=== PATIENT | female | born 1935 | race Caucasian/White ===

== ENCOUNTER 2016-11-27 11:25 | Emergency (ER) | payer OTHER ==
[2016-11-27 11:29] VITALS: BP 127/81; BMI 26.2
--- NOTE | 2016-11-27 12:06 | DR.EXTPAIN ---
HPI - Time seen Time seen: 11:50 - PCP Primary Care Physician: EDER - Complaint/Symptoms Chief Complaint Doctor Comments: Patient with frequent falls, had large hematoms of the head few weeks ago, last week fell injured left shoulder. Family member reports that patient is having increasing altered mental status. Chief Complaint:: PT. C/O LEFT SHOULDER PAIN S/P FALL. FAMILY MEMBER STATES PT. HAS BEEN FALLING MORE FREQUENTLY LATELY. PT. HAS AN OLD BRUISE TO LEFT FOREARM AND LEFT OUTER UPPER ARM. - Source History Provided: Patient, Family Member - Mode of arrival Mode of Arrival: Wheelchair - Timing Onset of Chief Complaint: 11/26/16 PMH - PMH Past Medical History: Yes Past Medical History: Alzheimers, CVA, Hypertension, [place] Past Surgical History: Yes Surgical History: CABG/Valve Surgery Past Surgical History Comment: BILATERAL CAROTID ENDARECTOMY - Family History History of Family Medical Conditions: Yes Family Medical History: [place], Coronary Artery Disease, Hypertension Family Medical History Comment: CVA - Social History Does patient currently use any type of tobacco product: No Have you used tobacco products in the last 12 months: No Type of Tobacco Use: None Does any household member use tobacco: No Alcohol Use: None Do you use any recreational Drugs:: No Lives With: Family Lives Where: Home - infectious screening In the last 2 months have you had wt loss of >10#?: NO Have you had fever, night sweats or hemotysis?: No Have you traveled outside the country in the last 6 months?: No Isolation: Standard ROS - Review of Systems Constitutional: No Symptoms Reported Eyes: No Symptoms Reported ENTM: No Symptoms Reported Respiratoy: No Symptoms Reported Gastrointestinal/Abdominal: No Symptoms Reported Genitourinary: No Symptoms Reported Neurological: No Symptoms Reported Musculoskeletal: Joint Pain (left) Integumentary: Change in Color (ecchymosis left shoulder) Hematologic/Lymphatic: No Symptoms Reported Endocrine: No Symptoms Reported Psychiatric: No Symptoms Reported All Other Systems: Reviewed and Negative PE - Vital Signs Vitals: Temperature 98.4 F Pulse Rate 76 Respiratory Rate 16 Blood Pressure 127/81 O2 Sat by Pulse Oximetry 96 - General General Appearance: Alert, In No Apparent Distress - Head Head Exam: Normal Inspection, Atraumatic - Eyes Eye exam: Normal Appearance, PERRL, EOMI - ENT ENT Exam: Normal Exam - Neck Neck Exam: Normal Inspection, Full ROM - Chest Chest Inspection: Normal Inspection - Respiratory Respiratory Exam: Normal Lung Sounds Bilat Respiratory Exam: Bilateral Clear to Auscultation - Cardiovascular Cardiovascular Exam: Regular Rate, Normal Rhythm - Abdominal Exam Abdominal Exam: Normal Inspection Abdominal Tenderness: negative: RUQ, RLQ, LUQ, LLQ, Epigastrium, Suprapubic, Diffuse, Mild, Moderate, Severe, Other - Extremities Extremities Exam: Tenderness (left shoulder) - Upper Extremities Shoulder Exam: Tenderness over AC Joint Arm Exam: negative: Normal Inspection, Full ROM, Tenderness, Swelling, Abrasion , Laceration, Ecchymosis, Deformity, Crepitus, Erythema, Other Elbow Exam: Normal Inspection Forearm Exam: Normal Inspection Hand Exam: Normal Inspection Neuromotor Exam: Normal Exam Neurosensory Exam: Normal Exam Hand Tendon Exam: Flexor Digitorium Profundus (Location) Upper Ext. Vascular Exam: Capillary Refill - Lower Extremities Hip/Pelvis Exam: Normal Inspection Upper Leg Exam: Normal Inspection Knee Exam: Normal Inspection Lower Leg Exam: Normal Inspection Ankle Exam: Normal Inspection Foot/Toe Exam: Normal Inspection Neurovascular/Tendon Exam: Normal Capillary Refill Gait Exam: Observed and Normal - Back Back Exam: Normal Inspection - Neurological Neurological Exam: Alert, Oriented X3, CN II-XII Intact - Psychiatric Psychiatric Exam: Normal Affect, Normal Mood - Skin Skin Exam: Warm, Dry, Intact Type of Lesion: Rash Distribution: Generalized, Involves Palms/Soles, Neck ROR - Labs Reviewed Laboratory: Specimen Type Catherized urine 11/27/16 13:35 Urine Color Yellow (YELLOW) 11/27/16 13:35 Urine Appearance Slightly hazy (CLEAR) 11/27/16 13:35 Urine pH 6.0 (5.0 - 8.0) 11/27/16 13:35 Ur Specific [place] 1.020 (1.000-1.030) 11/27/16 13:35 Urine Protein Negative (NEGATIVE) 11/27/16 13:35 Urine Glucose (UA) Negative (NEGATIVE) 11/27/16 13:35 Urine Ketones Negative (NEGATIVE) 11/27/16 13:35 Urine Occult Blood Negative (NEGATIVE) 11/27/16 13:35 Urine Nitrite Positive (NEGATIVE) 11/27/16 13:35 Urine Bilirubin Negative (NEGATIVE) 11/27/16 13:35 Urine Urobilinogen Normal (NORMAL) 11/27/16 13:35 Ur Leukocyte Esterase Negative (NEGATIVE) 11/27/16 13:35 Urine RBC 2-5 /HPF (NEGATIVE) 11/27/16 13:35 Urine WBC 3-7 /HPF (NEGATIVE) 11/27/16 13:35 Ur Squamous Epith Cells Rare /HPF (NEGATIVE) 11/27/16 13:35 Amorphous Sediment Trace /HPF (NEGATIVE) 11/27/16 13:35 Urine Bacteria 2+ /HPF (NEGATIVE) 11/27/16 13:35 Hyaline Casts Rare /LPF (NEGATIVE) 11/27/16 13:35 Ur Culture Indicated? Yes/culture set up 11/27/16 13:35 - XRAY XRAY Interpreted by: Radiologist (No acute intracranial process can be identified, Small vessel disease, mild age related cortical atrophy, Shoulder negative for fracture) - Diagnosis Discharge Problem: Contusion of shoulder, left Qualifiers: Encounter type: initial encounter Qualified Code(s): S40.012A - Contusion of left shoulder, initial encounter - Discharge Plan Condition: Stable - Follow ups/Referrals Follow ups/Referrals: Trent GAINES [Primary Care Provider] - 3 days - Instructions
--- NOTE | 2016-11-27 12:41 | RAD ---
HISTORY: Injury, fall, left humeral pain Study: Left humerus two view Comparison: None Findings: No acute cortical disruption or dislocation can be identified. The humeral head appears unremarkabl e. No significant soft tissue swelling or injury can be seen. IMPRESSION: 1. Negative exam. Reported By:
--- NOTE | 2016-11-27 12:47 | CT ---
HISTORY: Head injury, fall Study: CT brain without contrast Comparison: None Technique: Multiple axial images of the brain were obtained from the skull base to the vertex without administr ation of IV contrast. Coronal and sagittal reformats were performed. Dose reduction procedures were used with MA/kv adjusted for body size. Findings: No acute intraparenchymal hemorrhage or mass can be identified. No extra-axial fluid collections ar e seen. No alteration in the attenuation of the brain parenchyma can be identified to suggest acute or subacute ischemic change. The ventricular system is symmetric and nondilated. there is decrease d attenuation in the periventricular white matter suggestive of small vessel vascular disease. Mild age-related cortical atrophy is present. The extracranial structures are grossly unremarkable. the c alvarium is intact. IMPRESSION: 1. No acute intracranial process can be identified. 2. Small-vessel disease 3. Mild age-related cortical atrophy Reported By:
[2016-11-27 13:43] LABS: BILIRUBIN,URINE NEGATIVE (NEGATIVE); BLOOD/HEMOGLOBIN,URINE NEGATIVE (NEGATIVE); GLUCOSE, URINE NEGATIVE (NEGATIVE); KETONES,URINE NEGATIVE (NEGATIVE); LEUKOCYTE ESTERASE ,URINE NEGATIVE (NEGATIVE); NITRITES,URINE POSITIVE (NEGATIVE); PROTEIN,URINE NEGATIVE (NEGATIVE); UROBILINOGEN,URINE NORMAL (NORMAL)
[2016-11-27 13:51] LABS: APPEARANCE,URINE SLIGHTLY HAZY (CLEAR); COLOR,URINE YELLOW (YELLOW)
[2016-11-27 13:52] LABS: SQUAMOUS EPITHELIAL CELL,UR RARE /HPF (NEGATIVE)
[2016-11-27 13:54] LABS: AMORPHOUS SEDIMENT,UR TRACE /HPF (NEGATIVE); BACTERIA,URINE 2+ /HPF (NEGATIVE); HYALINE CASTS, URINE RARE /LPF (NEGATIVE)
== END 2016-11-27 14:16 | disposition home or self-care (01) ==
LOC: ER 11:56
DX: S40.012A Contusion of left shoulder, initial encounter (principal); B96.29 Other Escherichia coli [E. coli] as the cause of diseases classified elsewhere; W19.XXXA Unspecified fall, initial encounter; Y92.9 Unspecified place or not applicable; R41.82 Altered mental status, unspecified
CPT/HCPCS: 51701; 70450; 73060; 81001; 87086; 87088; 87186; 99283

== ENCOUNTER → 2016-12-18 | Outpatient (CLI) | payer OTHER ==
[2016-11-27 11:29] VITALS: BP 127/81
--- NOTE | 2016-12-18 14:45 | RAD ---
HISTORY: Back pain Study: Lumbar spine AP, lateral, lateral flexion and extension Comparison: None Findings: The bones are osteopenic. There is slight retrolisthesis L3 on L4 and L4 on L5 which is stable in fl exion and extension with the exception of slight increase in retrolisthesis L3 on L4 in extension. T he lumbar vertebral bodies are of average height. There is a marked which compression of T12 age ind eterminate. Degenerative disc disease is present at all levels except L5-S1. The pedicles are intact . The SI joints are normal. There is facet degenerative joint disease at L5-S1 bilaterally. IMPRESSION: Multilevel degenerative disc disease as described above Slight retrolisthesis L3 on L4 and L4 on L5 stable in flexion extension with the exception of slight increase retrolisthesis L3 on L4 in extension Facet degenerative joint disease. Osteopenia Reported By:
== END ==
LOC: RAD 10:00
PROVIDERS: ATTEND Pain Medicine Interventional Pain Medicine
DX: M51.27 Other intervertebral disc displacement, lumbosacral region (principal)
CPT/HCPCS: 72120

== ENCOUNTER → 2017-06-14 | Outpatient (CLI) | payer OTHER ==
[2017-06-14 10:40] LABS: BLOOD UREA NITROGEN 22 mg/dL (7-18); CALCIUM 8.8 mg/dL (8.5-10.1); CARBON DIOXIDE 31.1 mmol/L (21-32); CHLORIDE 103 mmol/L (98-107); CREATININE 1.06 mg/dL (0.55-1.02); SODIUM 140 mmol/L (136-145); eGFR BLACK RACES > 60 (>60); eGFR NON BLACK RACES 53 (>60)
[2017-06-14 10:59] LABS: B-TYPE NATRIURETIC PEPTIDE 125 pg/mL (0-79)
--- NOTE | 2017-06-14 11:49 | RAD ---
HISTORY: Status post coronary artery stent placement Study: Two views of the chest Comparison: None Findings: The patient is rotated. The cardiac silhouette is enlarged. The lungs are well expanded without evide nce of focal consolidation. The aorta is partially calcified and tortuous. Postoperative changes of m idline sternotomy are noted. IMPRESSION: Cardiomegaly. Reported By:
== END ==
LOC: LAB 10:12
PROVIDERS: ATTEND Internal Medicine Cardiovascular Disease
DX: I35.0 Nonrheumatic aortic (valve) stenosis (principal); F02.80 Dementia in other diseases classified elsewhere, unspecified severity, without behavioral disturbance, psychotic disturbance, mood disturbance, and anxiety; I10 Essential (primary) hypertension; G30.8 Other Alzheimer's disease; Z95.5 Presence of coronary angioplasty implant and graft
CPT/HCPCS: 36415; 71020; 80048; 83880

== ENCOUNTER 2017-09-17 15:35 | Observation (INO) | payer OTHER ==
--- NOTE | 2017-09-17 16:11 | RAD ---
Examination: Portable AP chest History: Chills and fever Comparison reference 06/14/2017 Findings: Continued mild cardiomegaly with postsurgical findings. Grossly clear lungs and pleural spa emi. There may be an early infiltrate developing in the right lower lung. No pneumothorax or pleural fluid. Impression: Probably negative, see above. Follow-up suggested if symptoms persist to evaluate possibl e developing pneumonia in the right lower lobe. Reported By:
[2017-09-17 16:26] LABS: BASOPHILS % (AUTO) 0.3 % (0.2-1.0); HEMATOCRIT 36.1 % (36.0-47.0); HEMOGLOBIN 12.6 g/dL (12.0-16.0); LYMPHOCYTES # (AUTO) 0.6 X10^3/uL (1.3-2.9); LYMPHOCYTES % (AUTO) 9.6 % (21.0-51.0); MEAN CORPUSCULAR HEMOGLOBIN 32.1 pg (27.0-34.0); MEAN CORPUSCULAR HGB CONC 34.9 g/dL (33.0-35.0); MEAN PLATELET VOLUME 8.3 fL (7.4-11.0); MONOCYTES # (AUTO) 0.4 x10^3/uL (0.3-0.8); MONOCYTES % (AUTO) 5.5 % (0.0-13.0); NEUTROPHILS # (AUTO) 5.5 x10^3/uL (2.2-4.8); NEUTROPHILS % (AUTO) 84.6 % (42.0-75.0); PLATELET COUNT 178 X10^3/uL (150.0-450.0); RED BLOOD COUNT 3.92 X10^6/uL (3.5-5.4); RED CELL DISTRIBUTION WIDTH 13.2 % (11.6-16.5); WHITE BLOOD COUNT 6.5 X10^3/uL (3.6-10.0)
--- NOTE | 2017-09-17 16:33 | DR.GENAD ---
HPI - PCP Primary Care Physician: EDER - Complaint/Symptoms Chief Complaint Doctors Comments: pt with dementia, hx from family. Family notices diaphoresis as well Chief Complaint:: FAMILY STATES TODAY PT. HAD FEVER, CHILLS, AND WAS DIAPHORETIC. PT. ALSO HAD A NON-PRODUCTIVE COUGH. - Nurses notes reviewed Nurses Notes Review: Yes - Source History Provided: Family Member, EMS - Mode of Arrival Mode of Arrival: EMS - Timing Onset of Chief Complaint: 09/17/17 - Duration Duration: Since Onset - Severity Severity: Moderate PMH - PMH Past Medical History: Yes Past Medical History: Alzheimers, CVA, Hypertension, [place] Past Medical History Comment: CHRONIC UTI'S Past Surgical History: Yes Surgical History: CABG/Valve Surgery - Family History History of Family Medical Conditions: Yes Family Medical History: [place], Coronary Artery Disease, Hypertension - Social History Does patient currently use any type of tobacco product: No Have you used tobacco products in the last 12 months: No Type of Tobacco Use: None Does any household member use tobacco: No Alcohol Use: None Do you use any recreational Drugs:: No Lives With: Family Lives Where: Home - infectious screening In the last 2 months have you had wt loss of >10#?: NO Have you had fever, night sweats or hemotysis?: No Have you traveled outside the country in the last 6 months?: No Isolation: Standard ROS - Review of Systems Unable to Obtain Due To: Altered mental status (pt with dementia, cant give good hx but family members are good historians) PE - Vital Signs Vitals: Temperature 97.7 F Pulse Rate 57 Respiratory Rate 24 Blood Pressure 105/54 O2 Sat by Pulse Oximetry 94 - General Limitations: Altered Mental Status General Appearance: Alert, In No Apparent Distress - Head Head Exam: Normal Inspection, Atraumatic, Normocephalic - Eyes Eye exam: Normal Appearance - ENT ENT Exam: Normal Exam, Normal Oropharynx Throat Exam: Normal Inspection - Neck Neck Exam: Normal Inspection, Full ROM, Trachea Midline. negative: Tenderness, Lymphadenopathy - Chest Chest Inspection: Normal Inspection, Symmetric Chest Wall Rise - Respiratory Respiratory Exam: negative: Accessory Muscle Use, Chest Wall Tenderness, Respiratory Distress Respiratory Exam: Right Rhonchi (air exch good) - Extremities Extremities Exam: Normal Capillary Refill, Edema - Skin Skin Exam: Diaphoresis (mild diaphoresis) ROR - Labs Reviewed Result Diagrams: 09/17/17 16:00 09/17/17 16:00 Laboratory: WBC 6.5 X10^3/uL (3.6-10.0) 09/17/17 16:00 RBC 3.92 X10^6/uL (3.5-5.4) 09/17/17 16:00 Hgb 12.6 g/dL (12.0-16.0) 09/17/17 16:00 Hct 36.1 % (36.0-47.0) 09/17/17 16:00 MCV 92.0 fL (80.0-100.0) 09/17/17 16:00 MCH 32.1 pg (27.0-34.0) 09/17/17 16:00 MCHC 34.9 g/dL (33.0-35.0) 09/17/17 16:00 RDW 13.2 % (11.6-16.5) 09/17/17 16:00 Plt Count 178 X10^3/uL (150.0-450.0) 09/17/17 16:00 MPV 8.3 fL (7.4-11.0) 09/17/17 16:00 Neut % 84.6 % (42.0-75.0) H 09/17/17 16:00 Lymph % 9.6 % (21.0-51.0) L 09/17/17 16:00 [place] % 5.5 % (0.0-13.0) 09/17/17 16:00 Eos % 0.0 % (0.9-2.9) L 09/17/17 16:00 Baso % 0.3 % (0.2-1.0) 09/17/17 16:00 Neut # 5.5 x10^3/uL (2.2-4.8) H 09/17/17 16:00 Lymph # 0.6 X10^3/uL (1.3-2.9) L 09/17/17 16:00 [place] # 0.4 x10^3/uL (0.3-0.8) 09/17/17 16:00 Eos # 0.0 x10^3/uL (0.0-0.2) 09/17/17 16:00 Baso # 0.0 X10^3/uL (0.0-0.1) 09/17/17 16:00 Absolute Nucleated RBC 0.0 /100WBC 09/17/17 16:00 - XRAY XRAY Findings: concern for developing infiltrate RLL - Discharge Plan Condition: Stable - Follow ups/Referrals Follow ups/Referrals: Trent GAINES [Primary Care Provider] - 3 days - Instructions
[2017-09-17 16:36] LABS: BILIRUBIN,URINE NEGATIVE (NEGATIVE); BLOOD/HEMOGLOBIN,URINE 1+ (NEGATIVE); GLUCOSE, URINE NEGATIVE (NEGATIVE); KETONES,URINE NEGATIVE (NEGATIVE); LEUKOCYTE ESTERASE ,URINE 1+ (NEGATIVE); NITRITES,URINE POSITIVE (NEGATIVE); PROTEIN,URINE 1+ (NEGATIVE); UROBILINOGEN,URINE NORMAL (NORMAL)
[2017-09-17 16:45] LABS: BLOOD UREA NITROGEN 22 mg/dL (7-18); CARBON DIOXIDE 29.3 mmol/L (21-32); CHLORIDE 103 mmol/L (98-107); CREATININE 1.37 mg/dL (0.55-1.02); SODIUM 138 mmol/L (136-145); TROPONIN I < 0.02 ng/mL (0-1.5); eGFR BLACK RACES 48 (>60); eGFR NON BLACK RACES 39 (>60)
[2017-09-17 16:49] LABS: ALANINE AMINOTRANSFERASE 24 Units/L (12-78); ALBUMIN 2.8 g/dL (3.4-5.0); ALKALINE PHOSPHATASE 85 Units/L (46-116); ASPARTATE AMINO TRANSFERASE 22 Units/L (15-37); CKMB % 3.3 % (<4); CREATINE KINASE 30 Units/L (26-192); CREATINE KINASE MB < 1.0 ng/mL (0-4.0); LIPASE 199 Units/L (73-393); TOTAL PROTEIN 6.9 g/dL (6.4-8.2)
[2017-09-17 16:50] LABS: APPEARANCE,URINE SLIGHTLY HAZY (CLEAR); COLOR,URINE YELLOW (YELLOW); RBC,URINE 0-2 /HPF (NEGATIVE); SQUAMOUS EPITHELIAL CELL,UR NEGATIVE /HPF (NEGATIVE)
[2017-09-17 16:51] LABS: B-TYPE NATRIURETIC PEPTIDE 196 pg/mL (0-79)
[2017-09-17 16:51] LABS: BACTERIA,URINE 4+ /HPF (NEGATIVE); HYALINE CASTS, URINE MODERATE /LPF (NEGATIVE); MUCUS,URINE MODERATE /HPF (NEGATIVE)
[2017-09-17] MEDS ORDERED: ROCEPHIN VIAL 1 GM 1 GM in NS 100 ML IV + SPIKE MINIBAG* 100 ML IV ONE (17:17)
[2017-09-17] MEDS ORDERED: ROCEPHIN VIAL 1 GM ONE (17:18)
[2017-09-17] MEDS ORDERED: NS 1/2 1000 ML IV 1,000 ML IV ONE (17:18)
[2017-09-17] MEDS ORDERED: NS 100 ML IV + SPIKE MINIBAG* 100 ML IV ONE (17:19)
[2017-09-17] MEDS ORDERED: NS 1000 ML 1,000 ML with POTASSIUM CHLORIDE INJ 10 MEQ VIAL 10 MEQ IV SCH ×2 (18:00)
[2017-09-17] MEDS ORDERED: NS 1/2 1000 ML IV 1,000 ML IV SCH ×2 (18:00)
[2017-09-17] MEDS ORDERED: XOPENEX 1.25 MG/3 ML NEBULE NEB ONE (20:31)
[2017-09-17 20:50] VITALS: BMI 27.1
[2017-09-17] MEDS: ROBITUSSIN DM PO SCH (21:59)
[2017-09-17] MEDS: NS 1/2 + KCL 20 MEQ/L 1,000 ML IV SCH (21:59)
[2017-09-17] MEDS: ZITHROMAX INJ 500 MG VIAL 500 MG in NS 250 ML IV 250 ML IV SCH (21:59)
[2017-09-17] MEDS: XOPENEX 1.25 MG/3 ML NEBULE NEB SCH (22:30)
[2017-09-18] MEDS ORDERED: TYLENOL 325 MG TAB PO PRN (05:46)
[2017-09-18] MEDS ORDERED: TYLENOL 325 MG TAB PO ONE (05:48)
[2017-09-18 06:17] LABS: BASOPHILS % (AUTO) 0.3 % (0.2-1.0); HEMOGLOBIN 11.6 g/dL (12.0-16.0); LYMPHOCYTES # (AUTO) 0.9 X10^3/uL (1.3-2.9); LYMPHOCYTES % (AUTO) 14.1 % (21.0-51.0); MEAN CORPUSCULAR HEMOGLOBIN 31.9 pg (27.0-34.0); MEAN CORPUSCULAR HGB CONC 35.1 g/dL (33.0-35.0); MEAN CORPUSCULAR VOLUME 90.7 fL (80.0-100.0); MEAN PLATELET VOLUME 8.6 fL (7.4-11.0); MONOCYTES # (AUTO) 0.4 x10^3/uL (0.3-0.8); MONOCYTES % (AUTO) 5.9 % (0.0-13.0); NEUTROPHILS % (AUTO) 79.7 % (42.0-75.0); PLATELET COUNT 148 X10^3/uL (150.0-450.0); RED BLOOD COUNT 3.64 X10^6/uL (3.5-5.4); RED CELL DISTRIBUTION WIDTH 13.3 % (11.6-16.5); WHITE BLOOD COUNT 6.3 X10^3/uL (3.6-10.0)
--- NOTE | 2017-09-18 06:38 | RAD ---
HISTORY: Cough, pneumonia Study: Chest AP portable Comparison: September 17, 2017 Findings: The patient is status post median sternotomy and CABG. The heart remains enlarged. The gamaliel are liv l. The aorta is ectatic and calcified. The lungs are free of acute alveolar infiltrates. There is elena e perihilar subsegmental atelectasis in the right lower lobe. The bony thorax is unremarkable. IMPRESSION: Cardiomegaly without congestive heart failure No definite infiltrates Perihilar subsegmental atelectasis right lower lobe Reported By:
[2017-09-18 06:40] LABS: ALANINE AMINOTRANSFERASE 25 Units/L (12-78); ALBUMIN 2.4 g/dL (3.4-5.0); ALKALINE PHOSPHATASE 72 Units/L (46-116); ASPARTATE AMINO TRANSFERASE 25 Units/L (15-37); BLOOD UREA NITROGEN 14 mg/dL (7-18); CARBON DIOXIDE 25.7 mmol/L (21-32); CHLORIDE 103 mmol/L (98-107); COR CA(FOR HYPOALB) 9.3 mg/dL (8.5-10.1); CREATININE 0.78 mg/dL (0.55-1.02); SODIUM 138 mmol/L (136-145); TOTAL PROTEIN 6.3 g/dL (6.4-8.2); eGFR BLACK RACES > 60 (>60); eGFR NON BLACK RACES > 60 (>60)
[2017-09-18] MEDS ORDERED: K-LYTE EFFERVESCENT PO PRN (06:56)
[2017-09-18] MEDS ORDERED: MAG-OX TAB PO PRN (06:56)
[2017-09-18] MEDS ORDERED: K-RIDER 10 MEQ/NS 100 ML 10 MEQ/100 ML BAG IV PRN (06:56)
[2017-09-18] MEDS ORDERED: POTASSIUM CHL 40 MEQ/NS 0.45% 500 ML IV PRN (06:56)
[2017-09-18] MEDS ORDERED: POTASSIUM CHLORIDE LIQ 20 MEQ UDC PO PRN (06:56)
[2017-09-18] MEDS ORDERED: MAGNESIUM SULFATE 1 GM/100 mL PREMIX 1 GM/100 ML BAG IV PRN (06:56)
[2017-09-18] MEDS ORDERED: POTASSIUM CHL 60 MEQ/NS 0.45% 500 ML IV PRN (06:56)
[2017-09-18] MEDS: NS 1/2 + KCL 20 MEQ/L 1,000 ML IV SCH ×2 (07:22→21:55)
[2017-09-18] MEDS: ROBITUSSIN DM PO SCH ×4 (08:06→21:55)
[2017-09-18] MEDS: XOPENEX 1.25 MG/3 ML NEBULE NEB SCH ×5 (08:36→20:32)
[2017-09-18] MEDS: ROCEPHIN 1 GM IV PREMIX 1 GM/50 ML IV.SOLN. IV SCH (17:11)
[2017-09-18] MEDS: ZITHROMAX INJ 500 MG VIAL 500 MG in NS 250 ML IV 250 ML IV SCH (21:55)
[2017-09-19 06:24] LABS: BASOPHILS % (AUTO) 0.3 % (0.2-1.0); EOSINOPHILS % (AUTO) 0.6 % (0.9-2.9); HEMATOCRIT 32.5 % (36.0-47.0); HEMOGLOBIN 11.6 g/dL (12.0-16.0); LYMPHOCYTES # (AUTO) 1.2 X10^3/uL (1.3-2.9); LYMPHOCYTES % (AUTO) 21.6 % (21.0-51.0); MEAN CORPUSCULAR HEMOGLOBIN 32.2 pg (27.0-34.0); MEAN CORPUSCULAR HGB CONC 35.8 g/dL (33.0-35.0); MEAN CORPUSCULAR VOLUME 89.9 fL (80.0-100.0); MEAN PLATELET VOLUME 8.6 fL (7.4-11.0); MONOCYTES # (AUTO) 0.3 x10^3/uL (0.3-0.8); NEUTROPHILS % (AUTO) 71.5 % (42.0-75.0); PLATELET COUNT 139 X10^3/uL (150.0-450.0); RED BLOOD COUNT 3.61 X10^6/uL (3.5-5.4); RED CELL DISTRIBUTION WIDTH 13.3 % (11.6-16.5); WHITE BLOOD COUNT 5.6 X10^3/uL (3.6-10.0)
[2017-09-19 07:05] LABS: ALANINE AMINOTRANSFERASE 25 Units/L (12-78); ALBUMIN 2.3 g/dL (3.4-5.0); ALKALINE PHOSPHATASE 70 Units/L (46-116); ASPARTATE AMINO TRANSFERASE 25 Units/L (15-37); BLOOD UREA NITROGEN 8 mg/dL (7-18); CALCIUM 8.1 mg/dL (8.5-10.1); CARBON DIOXIDE 27.1 mmol/L (21-32); CHLORIDE 103 mmol/L (98-107); COR CA(FOR HYPOALB) 9.5 mg/dL (8.5-10.1); CREATININE 0.58 mg/dL (0.55-1.02); MAGNESIUM 1.9 mg/dL (1.7-2.9); SODIUM 138 mmol/L (136-145); TOTAL PROTEIN 6.3 g/dL (6.4-8.2); eGFR BLACK RACES > 60 (>60); eGFR NON BLACK RACES > 60 (>60)
[2017-09-19] MEDS ORDERED: MILK OF MAGNESIA PO PRN (09:27)
[2017-09-19] MEDS: XOPENEX 1.25 MG/3 ML NEBULE NEB SCH ×5 (09:32→20:27)
[2017-09-19] MEDS: ROBITUSSIN DM PO SCH ×4 (09:50→21:28)
[2017-09-19] MEDS: ROCEPHIN 1 GM IV PREMIX 1 GM/50 ML IV.SOLN. IV SCH (10:14)
[2017-09-19] MEDS: NS 1/2 + KCL 20 MEQ/L 1,000 ML IV SCH (21:28)
[2017-09-19] MEDS: ZITHROMAX INJ 500 MG VIAL 500 MG in NS 250 ML IV 250 ML IV SCH (21:28)
[2017-09-20] MEDS: NS 1/2 + KCL 20 MEQ/L 1,000 ML IV SCH ×3 (02:59→12:23)
[2017-09-20 06:25] LABS: BASOPHILS % (AUTO) 0.3 % (0.2-1.0); HEMATOCRIT 34.6 % (36.0-47.0); HEMOGLOBIN 12.3 g/dL (12.0-16.0); LYMPHOCYTES # (AUTO) 1.4 X10^3/uL (1.3-2.9); LYMPHOCYTES % (AUTO) 29.6 % (21.0-51.0); MEAN CORPUSCULAR HGB CONC 35.4 g/dL (33.0-35.0); MEAN CORPUSCULAR VOLUME 90.4 fL (80.0-100.0); MEAN PLATELET VOLUME 8.4 fL (7.4-11.0); MONOCYTES # (AUTO) 0.4 x10^3/uL (0.3-0.8); MONOCYTES % (AUTO) 7.7 % (0.0-13.0); NEUTROPHILS # (AUTO) 2.8 x10^3/uL (2.2-4.8); NEUTROPHILS % (AUTO) 61.4 % (42.0-75.0); PLATELET COUNT 153 X10^3/uL (150.0-450.0); RED BLOOD COUNT 3.83 X10^6/uL (3.5-5.4); RED CELL DISTRIBUTION WIDTH 13.2 % (11.6-16.5); WHITE BLOOD COUNT 4.6 X10^3/uL (3.6-10.0)
[2017-09-20 06:48] LABS: ALANINE AMINOTRANSFERASE 20 Units/L (12-78); ALBUMIN 2.4 g/dL (3.4-5.0); ALKALINE PHOSPHATASE 71 Units/L (46-116); ASPARTATE AMINO TRANSFERASE 22 Units/L (15-37); BLOOD UREA NITROGEN 5 mg/dL (7-18); CALCIUM 8.3 mg/dL (8.5-10.1); CHLORIDE 103 mmol/L (98-107); COR CA(FOR HYPOALB) 9.6 mg/dL (8.5-10.1); CREATININE 0.51 mg/dL (0.55-1.02); SODIUM 140 mmol/L (136-145); TOTAL PROTEIN 6.6 g/dL (6.4-8.2); eGFR BLACK RACES > 60 (>60); eGFR NON BLACK RACES > 60 (>60)
--- NOTE | 2017-09-20 07:09 | RAD ---
Examination: AP chest History: Cough and pneumonia Comparison 09/18/2017, 06/14/2017 Findings: Stable mild cardiomegaly. The left diaphragm is partially obscured. Suspect infiltrate or a telectasis in the left lower lung. Stable widening of the upper mediastinum consistent with vascular ectasia. No definite pleural fluid or pneumothorax. Impression: Suspect small infiltrate in the left lower lung. This area was completely clear on a prio r examination from June,. Follow-up suggested. Reported By:
[2017-09-20] MEDS: ROBITUSSIN DM PO SCH ×2 (08:58→13:40)
[2017-09-20] MEDS: ROCEPHIN 1 GM IV PREMIX 1 GM/50 ML IV.SOLN. IV SCH (08:59)
[2017-09-20] MEDS: XOPENEX 1.25 MG/3 ML NEBULE NEB SCH (09:34)
[2017-09-20 12:12] VITALS: BP 158/70
== END 2017-09-20 13:55 | disposition home health service (06) ==
LOC: ER 15:39 → ICU 17:47
PROVIDERS: ADMIT Internal Medicine; ATTEND Internal Medicine
DX: J18.8 Other pneumonia, unspecified organism (principal); N39.0 Urinary tract infection, site not specified; B96.1 Klebsiella pneumoniae [K. pneumoniae] as the cause of diseases classified elsewhere; I10 Essential (primary) hypertension; G30.8 Other Alzheimer's disease; F02.80 Dementia in other diseases classified elsewhere, unspecified severity, without behavioral disturbance, psychotic disturbance, mood disturbance, and anxiety; R94.31 Abnormal electrocardiogram [ECG] [EKG]; I25.10 Atherosclerotic heart disease of native coronary artery without angina pectoris; J44.9 Chronic obstructive pulmonary disease, unspecified; Z87.440 Personal history of urinary (tract) infections; R26.89 Other abnormalities of gait and mobility
CPT/HCPCS: 36415; 51701; 71045; 80053; 81001; 82550; 82553; 83605; 83690; 83735; 83880; 84484; 85025; 85610; 87040; 87086; 87088; 87186; 87502; 93005; 93010; 94640; 94669; 96365; 96374; 99283; 99284; A4222; J7030; G0378; J0456; J0696; J3480

== ENCOUNTER 2019-08-28 17:28 | Observation (INO) ==
[~2019-08-28 17:28] MED LIST: DIPRIVAN VIAL ONE
--- NOTE | 2019-08-28 17:59 | DR.FEVERAD ---
HPI <CHUY PHELAN - Last Filed: 09/05/19 11:05> Time seen Time Seen by Provider: 08/28/19 17:59 <Michelle Ryan - Last Filed: 08/28/19 20:50> PCP Primary Care Physician: Maribel Thomas HPI Comment HPI Comment: Started shuffling and "declining" a week ago which was attributed to uti; daughter started rf of cipro on Sunday but pt started coughing and "choking" with eating a few days ago; family tried thick it but she "choked real bad" yesterday and was somnolent all day today with snoring and sleeping; low grade fever to 100.3 with congestion and wheezing. Nurses notes reviewed Nurses Notes Review: Yes PMH <CHUY PHELAN - Last Filed: 09/05/19 11:05> PMH Past Medical History: Alzheimers, CVA, Hypertension and [place] Past Surgical History: Yes Surgical History: CABG/Valve Surgery Family History Family Medical History: [place], Coronary Artery Disease and Hypertension Social History Do you use any recreational Drugs:: No infectious screening Isolation: Standard ROS <CHUY PHELAN - Last Filed: 09/05/19 11:05> Review of Systems Constitutional: See HPI, Weakness and Fatigue Eyes: No Symptoms Reported and See HPI ENTM: No Symptoms Reported and See HPI; negative Nose Discharge and Nose Congestion Respiratoy: See HPI, Non-Productive Cough and Short of Breath (ON EXERTION.) Cardiovascular: No Symptoms Reported and See HPI; negative Chest Pain Gastrointestinal/Abdominal: No Symptoms Reported and See HPI; negative Diarrhea and Vomiting Genitourinary: No Symptoms Reported and See HPI Neurological: Weakness Musculoskeletal: No Symptoms Reported and See HPI Integumentary: See HPI and Dryness Hematologic/Lymphatic: No Symptoms Reported and See HPI Endocrine: No Symptoms Reported and See HPI Psychiatric: No Symptoms Reported and See HPI All Other Systems: Reviewed and Negative PE <CHUY PHELAN - Last Filed: 09/05/19 11:05> Vital Signs Vitals: Temperature 98.1 F Pulse Rate [Left] 72 Pulse Rate 66 Respiratory Rate 18 Blood Pressure [Left Arm] 119/60 Blood Pressure 130/61 O2 Sat by Pulse Oximetry 95 General Limitations: No Limitations General Appearance: Alert and In No Apparent Distress Head Head Exam: Normal Inspection Eyes Eye exam: Normal Appearance ENT ENT Exam: Normal Exam TM/Canal Exam: Bilateral: Normal Nose Exam: Normal Nose Exam Mouth Exam: Normal Inspection Throat Exam: Normal Inspection; negative Tonsillar Erythema, Tonsillomegaly and Tonsillar Exudate Neck Neck Exam: Normal Inspection and Trachea Midline; negative Tenderness and Lymphadenopathy Respiratory Respiratory Exam: Normal Lung Sounds Bilat; negative Accessory Muscle Use, Chest Wall Tenderness and Respiratory Distress Respiratory Exam: Bilateral: Rhonchi and Lower: Rhonchi Cardiovascular Cardiovascular Exam: Regular Rate, Normal Rhythm and Normal Heart Sounds Abdominal Exam Abdominal Exam: Normal Inspection, Normal Bowel Sounds and Soft; negative Tenderness Extremities Extremities Exam: Normal Inspection Back Back Exam: Normal Inspection Neurologic Neurological Exam: Alert and Oriented X3 Psychiatric Psychiatric Exam: Normal Affect and Normal Mood Skin Skin Exam: Warm, Dry, Intact and Normal Color <Michelle Ryan - Last Filed: 08/28/19 20:50> Vital Signs Vitals: Temperature 98.1 F Pulse Rate [Left] 72 Pulse Rate 66 Respiratory Rate 18 Blood Pressure [Left Arm] 119/60 Blood Pressure 130/61 O2 Sat by Pulse Oximetry 95 General General Appearance: Obese and Other Respiratory Respiratory Exam: Bilateral: Wheezing (anteriorly) and Upper: Wheezing (anteriorly) Cardiovascular Cardiovascular Exam: Regular Rate and Normal Rhythm Abdominal Exam Abdominal Exam: Normal Inspection, Normal Bowel Sounds and Soft Skin Skin Exam: Warm MDM <CHUY PHELAN - Last Filed: 09/05/19 11:05> Additional Information Additional Information Obtained From: Family Differential Diagnosis Differential Diagnosis: Dehydration, Electrolyte disorder, Myocardial Infarction, Pulmonary embolus, Pneumonia, Pyelonephritis and UTI <Michelle Ryan - Last Filed: 08/28/19 20:50> Consultation Called: 20:35 (Dr Street accepts pt) ROR <CHUY PHELAN - Last Filed: 09/05/19 11:05> Labs Reviewed Result Diagrams: 08/30/19 05:48 08/30/19 05:48 Laboratory: 08/28/19 18:46 Blood Blood Culture - Final 08/28/19 18:39 Blood Blood Culture - Final WBC 7.4 X10^3/uL (3.6-10.0) 08/28/19 18:39 RBC 4.06 X10^6/uL (3.5-5.4) 08/28/19 18:39 Hgb 12.9 g/dL (12.0-16.0) 08/28/19 18:39 Hct 37.2 % (36.0-47.0) 08/28/19 18:39 MCV 91.5 fL (80.0-100.0) 08/28/19 18:39 MCH 31.8 pg (27.0-34.0) 08/28/19 18:39 MCHC 34.8 g/dL (33.0-35.0) 08/28/19 18:39 RDW 13.7 % (11.6-16.5) 08/28/19 18:39 Plt Count 224 X10^3/uL (150.0-450.0) 08/28/19 18:39 MPV 7.3 fL (7.4-11.0) L 08/28/19 18:39 Neut % (Auto) 61.7 % (42.0-75.0) 08/28/19 18:39 Lymph % (Auto) 27.0 % (21.0-51.0) 08/28/19 18:39 [place] % (Auto) 7.4 % (0.0-13.0) 08/28/19 18:39 Eos % (Auto) 3.1 % (0.9-2.9) H 08/28/19 18:39 Baso % (Auto) 0.8 % (0.2-1.0) 08/28/19 18:39 Neut # (Auto) 4.6 x10^3/uL (2.2-4.8) 08/28/19 18:39 Lymph # (Auto) 2.0 X10^3/uL (1.3-2.9) 08/28/19 18:39 [place] # (Auto) 0.5 x10^3/uL (0.3-0.8) 08/28/19 18:39 Eos # (Auto) 0.2 x10^3/uL (0.0-0.2) 08/28/19 18:39 Baso # (Auto) 0.1 X10^3/uL (0.0-0.1) 08/28/19 18:39 Absolute Nucleated RBC 0.0 /100WBC 08/28/19 18:39 Sodium 140 mmol/L (136-145) 08/28/19 18:39 Corrected Sodium 140 mmol/L (136-145) 08/28/19 18:39 Potassium 3.8 mmol/L (3.5-5.1) 08/28/19 18:39 Chloride 104 mmol/L (98-107) 08/28/19 18:39 Carbon Dioxide 31.8 mmol/L (21-32) 08/28/19 18:39 BUN 26 mg/dL (7-18) H 08/28/19 18:39 Creatinine 1.62 mg/dL (0.55-1.02) H 08/28/19 18:39 Est GFR (MDRD) Af Amer 39 (>60) L 08/28/19 18:39 Est GFR (MDRD) Non-Af 32 (>60) L 08/28/19 18:39 Glucose 113 mg/dL (65-99) H 08/28/19 18:39 Calcium 8.6 mg/dL (8.5-10.1) 08/28/19 18:39 Corrected Calcium 9.3 mg/dL (8.5-10.1) 08/28/19 18:39 Total Bilirubin 0.40 mg/dL (0.2-1.0) 08/28/19 18:39 AST 17 Units/L (15-37) 08/28/19 18:39 ALT 17 Units/L (12-78) 08/28/19 18:39 Alkaline Phosphatase 118 Units/L (46-116) H 08/28/19 18:39 Total Protein 7.6 g/dL (6.4-8.2) 08/28/19 18:39 Albumin 3.1 g/dL (3.4-5.0) L 08/28/19 18:39 Globulin 4.5 g/dL (2.5-4.5) 08/28/19 18:39 Albumin/Globulin Ratio 0.7 Ratio (1.1-2.1) L 08/28/19 18:39 <Michelle Ryan - Last Filed: 08/28/19 20:50> Labs Reviewed Laboratory Results Reviewed?: Yes Laboratory: 08/28/19 18:46 Blood Blood Culture - Final 08/28/19 18:39 Blood Blood Culture - Final WBC 7.4 X10^3/uL (3.6-10.0) 08/28/19 18:39 RBC 4.06 X10^6/uL (3.5-5.4) 08/28/19 18:39 Hgb 12.9 g/dL (12.0-16.0) 08/28/19 18:39 Hct 37.2 % (36.0-47.0) 08/28/19 18:39 MCV 91.5 fL (80.0-100.0) 08/28/19 18:39 MCH 31.8 pg (27.0-34.0) 08/28/19 18:39 MCHC 34.8 g/dL (33.0-35.0) 08/28/19 18:39 RDW 13.7 % (11.6-16.5) 08/28/19 18:39 Plt Count 224 X10^3/uL (150.0-450.0) 08/28/19 18:39 MPV 7.3 fL (7.4-11.0) L 08/28/19 18:39 Neut % (Auto) 61.7 % (42.0-75.0) 08/28/19 18:39 Lymph % (Auto) 27.0 % (21.0-51.0) 08/28/19 18:39 [place] % (Auto) 7.4 % (0.0-13.0) 08/28/19 18:39 Eos % (Auto) 3.1 % (0.9-2.9) H 08/28/19 18:39 Baso % (Auto) 0.8 % (0.2-1.0) 08/28/19 18:39 Neut # (Auto) 4.6 x10^3/uL (2.2-4.8) 08/28/19 18:39 Lymph # (Auto) 2.0 X10^3/uL (1.3-2.9) 08/28/19 18:39 [place] # (Auto) 0.5 x10^3/uL (0.3-0.8) 08/28/19 18:39 Eos # (Auto) 0.2 x10^3/uL (0.0-0.2) 08/28/19 18:39 Baso # (Auto) 0.1 X10^3/uL (0.0-0.1) 08/28/19 18:39 Absolute Nucleated RBC 0.0 /100WBC 08/28/19 18:39 Sodium 140 mmol/L (136-145) 08/28/19 18:39 Corrected Sodium 140 mmol/L (136-145) 08/28/19 18:39 Potassium 3.8 mmol/L (3.5-5.1) 08/28/19 18:39 Chloride 104 mmol/L (98-107) 08/28/19 18:39 Carbon Dioxide 31.8 mmol/L (21-32) 08/28/19 18:39 BUN 26 mg/dL (7-18) H 08/28/19 18:39 Creatinine 1.62 mg/dL (0.55-1.02) H 08/28/19 18:39 Est GFR (MDRD) Af Amer 39 (>60) L 08/28/19 18:39 Est GFR (MDRD) Non-Af 32 (>60) L 08/28/19 18:39 Glucose 113 mg/dL (65-99) H 08/28/19 18:39 Calcium 8.6 mg/dL (8.5-10.1) 08/28/19 18:39 Corrected Calcium 9.3 mg/dL (8.5-10.1) 08/28/19 18:39 Total Bilirubin 0.40 mg/dL (0.2-1.0) 08/28/19 18:39 AST 17 Units/L (15-37) 08/28/19 18:39 ALT 17 Units/L (12-78) 08/28/19 18:39 Alkaline Phosphatase 118 Units/L (46-116) H 08/28/19 18:39 Total Protein 7.6 g/dL (6.4-8.2) 08/28/19 18:39 Albumin 3.1 g/dL (3.4-5.0) L 08/28/19 18:39 Globulin 4.5 g/dL (2.5-4.5) 08/28/19 18:39 Albumin/Globulin Ratio 0.7 Ratio (1.1-2.1) L 08/28/19 18:39 Other Results Comments: IMPRESSION Cardiomegaly. Interstitial changes and peribronchial thickening. Left basilar infiltrate cannot be excluded. XRAY XRAY Interpreted by: Radiologist Oralia <CHUY PHELAN - Last Filed: 09/05/19 11:05> Opioid Risk Tool Total: 0 Total Score Risk Category: Low Risk Copyright: Brendon FINK predicting aberrant behaviors <Michelle Ryan - Last Filed: 08/28/19 20:50> Opioid Risk Tool Total: 0 Total Score Risk Category: Low Risk <ZEFERINOKiaraRoyer PHELAN - Last Filed: 09/05/19 11:05> Diagnosis Discharge Problem: Hypoxia Pneumonia Qualifiers: Pneumonia type: aspiration pneumonia Aspiration pneumonia type: unspecified Laterality: left Lung location: lower lobe of lung Qualified Code(s): J69.0 - Pneumonitis due to inhalation of food and vomit Dysphagia Qualifiers: Dysphagia type: other dysphagia Qualified Code(s): R13.19 - Other dysphagia Altered mental status Qualifiers: Altered mental status type: somnolence Qualified Code(s): R40.0 - Somnolence Instructions Instructions: Confusion Forms: Excuse From Work or School Excuse From Work Patient Portal
[2019-08-28 18:09] VITALS: BMI 29.2
[2019-08-28 18:55] LABS: BASOPHILS # (AUTO) 0.1 X10^3/uL (0.0-0.1); BASOPHILS % (AUTO) 0.8 % (0.2-1.0); EOSINOPHILS # (AUTO) 0.2 x10^3/uL (0.0-0.2); EOSINOPHILS % (AUTO) 3.1 % (0.9-2.9); HEMATOCRIT 37.2 % (36.0-47.0); HEMOGLOBIN 12.9 g/dL (12.0-16.0); MEAN CORPUSCULAR HEMOGLOBIN 31.8 pg (27.0-34.0); MEAN CORPUSCULAR HGB CONC 34.8 g/dL (33.0-35.0); MEAN CORPUSCULAR VOLUME 91.5 fL (80.0-100.0); MEAN PLATELET VOLUME 7.3 fL (7.4-11.0); MONOCYTES # (AUTO) 0.5 x10^3/uL (0.3-0.8); MONOCYTES % (AUTO) 7.4 % (0.0-13.0); NEUTROPHILS # (AUTO) 4.6 x10^3/uL (2.2-4.8); NEUTROPHILS % (AUTO) 61.7 % (42.0-75.0); PLATELET COUNT 224 X10^3/uL (150.0-450.0); RED BLOOD COUNT 4.06 X10^6/uL (3.5-5.4); RED CELL DISTRIBUTION WIDTH 13.7 % (11.6-16.5); WHITE BLOOD COUNT 7.4 X10^3/uL (3.6-10.0)
--- NOTE | 2019-08-28 19:05 | RAD ---
HISTORYCONGESTION, AMSSTUDYCHEST, 1 [facility]COMPARSam[facility]bruary 2017FINDINGSThe patient is slightly rotated. The cardiac silhouette is enlarged. Increased perihilar markings and bronchial wall thickening are noted. Left basilar infiltrate cannot be excluded. The aorta is partially calcified and tortuous.IMPRESSIONCardiomegaly.Interstitial changes and peribronchial thickening. Left basilar infiltrate cannot be excludedElectronically signed by: JACKIE WELCH (Aug 28, 2019 19:03:38)
[2019-08-28 19:19] LABS: ALBUMIN 3.1 g/dL (3.4-5.0); CALCIUM 8.6 mg/dL (8.5-10.1); CARBON DIOXIDE 31.8 mmol/L (21-32); COR CA(FOR HYPOALB) 9.3 mg/dL (8.5-10.1); CREATININE 1.62 mg/dL (0.55-1.02); TOTAL PROTEIN 7.6 g/dL (6.4-8.2)
[2019-08-28] MEDS ORDERED: ROCEPHIN VIAL 1 GRAM 1 G in NS 100 ML IV + SPIKE MINIBAG* 100 ML IV ONE (20:28)
[2019-08-28] MEDS ORDERED: NS 1000 ML 1,000 ML ONE (20:42)
[2019-08-28] MEDS ORDERED: NS 100 ML IV + SPIKE MINIBAG* 100 ML IV ONE (20:42)
[2019-08-28] MEDS ORDERED: ROCEPHIN VIAL 1 GRAM ONE (20:43)
[2019-08-28] MEDS: NS 1000 ML 1,000 ML IV SCH (20:50)
[2019-08-28] MEDS: ZITHROMAX INJ 500 MG VIAL 500 MG in NS 250 ML IV 250 ML IV SCH (22:55)
[2019-08-29 05:37] LABS: BASOPHILS % (AUTO) 0.7 % (0.2-1.0); EOSINOPHILS # (AUTO) 0.3 x10^3/uL (0.0-0.2); EOSINOPHILS % (AUTO) 3.9 % (0.9-2.9); HEMATOCRIT 35.2 % (36.0-47.0); HEMOGLOBIN 12.1 g/dL (12.0-16.0); LYMPHOCYTES # (AUTO) 1.2 X10^3/uL (1.3-2.9); LYMPHOCYTES % (AUTO) 18.4 % (21.0-51.0); MEAN CORPUSCULAR HEMOGLOBIN 31.8 pg (27.0-34.0); MEAN CORPUSCULAR HGB CONC 34.3 g/dL (33.0-35.0); MEAN CORPUSCULAR VOLUME 92.7 fL (80.0-100.0); MEAN PLATELET VOLUME 7.8 fL (7.4-11.0); MONOCYTES # (AUTO) 0.5 x10^3/uL (0.3-0.8); MONOCYTES % (AUTO) 7.1 % (0.0-13.0); NEUTROPHILS # (AUTO) 4.6 x10^3/uL (2.2-4.8); NEUTROPHILS % (AUTO) 69.9 % (42.0-75.0); PLATELET COUNT 192 X10^3/uL (150.0-450.0); RED BLOOD COUNT 3.79 X10^6/uL (3.5-5.4); RED CELL DISTRIBUTION WIDTH 13.5 % (11.6-16.5); WHITE BLOOD COUNT 6.5 X10^3/uL (3.6-10.0)
[2019-08-29 06:03] LABS: ALANINE AMINOTRANSFERASE 16 Units/L (12-78); ALBUMIN 2.7 g/dL (3.4-5.0); ALKALINE PHOSPHATASE 102 Units/L (46-116); ASPARTATE AMINO TRANSFERASE 18 Units/L (15-37); BLOOD UREA NITROGEN 22 mg/dL (7-18); CARBON DIOXIDE 28.8 mmol/L (21-32); CHLORIDE 106 mmol/L (98-107); CREATININE 1.13 mg/dL (0.55-1.02); SODIUM 143 mmol/L (136-145); TOTAL PROTEIN 6.9 g/dL (6.4-8.2); eGFR NON BLACK RACES 49 (>60)
[2019-08-29] MEDS ORDERED: MAGNESIUM SULFATE 1 GRAM/100 mL PREMIX 1 GM/100 ML BAG IV PRN (06:28)
[2019-08-29] MEDS ORDERED: K-DUR TAB 20 MEQ PO PRN (06:28)
[2019-08-29] MEDS ORDERED: POTASSIUM CHLORIDE LIQ 20 MEQ UDC PO PRN (06:28)
[2019-08-29] MEDS ORDERED: KLOR-CON PO PRN (06:28)
[2019-08-29] MEDS ORDERED: MICRO K EXTEN CAP 10 MEQ PO PRN (06:28)
[2019-08-29] MEDS ORDERED: POTASSIUM CHL 60 MEQ/NS 0.45% 500 ML IV PRN (06:28)
[2019-08-29] MEDS ORDERED: POTASSIUM CHL 40 MEQ/NS 0.45% 500 ML IV PRN (06:28)
[2019-08-29] MEDS: K-RIDER 10 MEQ/NS 100 ML 10 MEQ/100 ML BAG IV PRN ×2 (06:42→08:27)
[2019-08-29] MEDS ORDERED: XANAX PO PRN (07:51)
[2019-08-29] MEDS ORDERED: PREDNISONE TAB 20 MG PO ONE ×2 (08:13→11:55)
[2019-08-29] MEDS ORDERED: DUONEB 0.5 MG/3 MG (3 mL) NEB SCH (08:30)
[2019-08-29] MEDS ORDERED: DIPRIVAN VIAL 20 ML ONE (08:57)
[2019-08-29] MEDS ORDERED: ROCEPHIN VIAL 1 GRAM 1 G in NS 100 ML IV + SPIKE MINIBAG* 100 ML IV SCH (09:00)
[2019-08-29] MEDS ORDERED: DONEPEZIL 23 MG PO SCH (09:00)
[2019-08-29] MEDS: ZOSYN VIAL 3.375 GRAMS 3.375 G in NS 100 ML IV + SPIKE MINIBAG* 100 ML IV SCH ×3 (10:57→22:06)
[2019-08-29] MEDS: LOVENOX INJ 40 MG SYR SC SCH (11:32)
[2019-08-29] MEDS: ZITHROMAX INJ 500 MG VIAL 500 MG in NS 250 ML IV 250 ML IV SCH (11:32)
[2019-08-29] MEDS: PLAVIX PO SCH (11:39)
[2019-08-29] MEDS: RisperDAL TAB 1 MG PO SCH (11:40)
[2019-08-29] MEDS: LOPRESSOR TAB 25 MG PO SCH ×2 (11:40→20:54)
[2019-08-29] MEDS: ASPIRIN EC 81 MG PO SCH (11:41)
[2019-08-29] MEDS: NORVASC TAB 5 MG PO SCH (11:41)
[2019-08-29] MEDS: NAMENDA TAB 10 MG PO SCH ×2 (11:41→20:52)
[2019-08-29] MEDS: SYNTHROID 25 mcg TAB PO SCH (11:42)
[2019-08-29] MEDS ORDERED: STERILE WATER IRRIGATION IR ONE (14:25)
[2019-08-29] MEDS: DUONEB 0.5 MG/3 MG (3 mL) NEB SCH ×2 (18:25→21:00)
[2019-08-29] MEDS: NS 1000 ML 1,000 ML IV SCH (19:20)
--- NOTE | 2019-08-29 20:22 | DR.H&P ---
H&P History & Physical for Day of: H&P Date: 08/29/19 Chief Complaint Chief Complaint: Dyspnea, Somnolence Allergies Allergies Allergy/AdvReac Type Severity Reaction Status Date / Time codeine Allergy Verified 09/17/17 15:46 History of Present Illness History of Present Illness: Pt is a 84 yo f w/ pmhx Alzheimer's Dementia, Dysphagia, CVA, HTN, MT, presenting after having choking episode and shortness of breath. Pt is watched over by her children(2 sons, 1 daughter) and witnessed that she had an acute choking episode that resulted in her becoming somnolent afterward. She does have history of UTI and daughter had started her on ciprofloxacin but pt was not getting better. She was brought to the ED for further evaluation. She was noted to have L basilar infiltrate on CXR, and had to be placed on supplemental O2 (2L nc) d/t hypoxia (does not require home O2). Pt was started on IV antibiotics (Azithromycin, Rocephin). Pt afebrile, no leukocytosis, mild KENNY w/ Cr 1.6. BloodCx pending. Past Medical History Past Medical History: Alzheimers, CVA, Hypertension and MT Past Surgical History Surgical History: Angioplasty/Stents and Carotid Endarterectomy Family History Family Medical History: MT and Sudden Cardiac Social History Does patient currently use any type of tobacco product: No Have you used tobacco products in the last 12 months: No Type of Tobacco Use: None Does any household member use tobacco: No Alcohol Use: None Drug Use: None Medications Home Medications: codeine Allergy (Verified 09/17/17 15:46) CONTINUE taking the following medications aspirin [Aspir-Low] 81 mg PO DAILY 08/28/19 [History] ciprofloxacin HCl 500 mg PO BID 08/28/19 [History] donepezil 23 mg PO DAILY 08/28/19 [History] levothyroxine 25 mcg PO DAILY 08/28/19 [History] quetiapine 50 mg PO TID 08/28/19 [History] Labs Result Diagrams: 08/29/19 05:10 08/29/19 05:10 Labs: Laboratory WBC 6.5 X10^3/uL (3.6-10.0) 08/29/19 05:10 RBC 3.79 X10^6/uL (3.5-5.4) 08/29/19 05:10 Hgb 12.1 g/dL (12.0-16.0) 08/29/19 05:10 Hct 35.2 % (36.0-47.0) L 08/29/19 05:10 MCV 92.7 fL (80.0-100.0) 08/29/19 05:10 MCH 31.8 pg (27.0-34.0) 08/29/19 05:10 MCHC 34.3 g/dL (33.0-35.0) 08/29/19 05:10 RDW 13.5 % (11.6-16.5) 08/29/19 05:10 Plt Count 192 X10^3/uL (150.0-450.0) 08/29/19 05:10 MPV 7.8 fL (7.4-11.0) 08/29/19 05:10 Neut % (Auto) 69.9 % (42.0-75.0) 08/29/19 05:10 Lymph % (Auto) 18.4 % (21.0-51.0) L 08/29/19 05:10 [place] % (Auto) 7.1 % (0.0-13.0) 08/29/19 05:10 Eos % (Auto) 3.9 % (0.9-2.9) H 08/29/19 05:10 Baso % (Auto) 0.7 % (0.2-1.0) 08/29/19 05:10 Neut # (Auto) 4.6 x10^3/uL (2.2-4.8) 08/29/19 05:10 Lymph # (Auto) 1.2 X10^3/uL (1.3-2.9) L 08/29/19 05:10 [place] # (Auto) 0.5 x10^3/uL (0.3-0.8) 08/29/19 05:10 Eos # (Auto) 0.3 x10^3/uL (0.0-0.2) H 08/29/19 05:10 Baso # (Auto) 0.0 X10^3/uL (0.0-0.1) 08/29/19 05:10 Absolute Nucleated RBC 0.0 /100WBC 08/29/19 05:10 Sodium 143 mmol/L (136-145) 08/29/19 05:10 Corrected Sodium TNP 08/29/19 05:10 Potassium 3.4 mmol/L (3.5-5.1) L 08/29/19 05:10 Chloride 106 mmol/L (98-107) 08/29/19 05:10 Carbon Dioxide 28.8 mmol/L (21-32) 08/29/19 05:10 BUN 22 mg/dL (7-18) H 08/29/19 05:10 Creatinine 1.13 mg/dL (0.55-1.02) H 08/29/19 05:10 Est GFR (MDRD) Af Amer 59 (>60) 08/29/19 05:10 Est GFR (MDRD) Non-Af 49 (>60) L 08/29/19 05:10 Glucose 101 mg/dL (65-99) H 08/29/19 05:10 Calcium 8.0 mg/dL (8.5-10.1) L 08/29/19 05:10 Corrected Calcium 9.0 mg/dL (8.5-10.1) 08/29/19 05:10 Magnesium 1.9 mg/dL (1.7-2.9) 08/29/19 05:10 Total Bilirubin 0.30 mg/dL (0.2-1.0) 08/29/19 05:10 AST 18 Units/L (15-37) 08/29/19 05:10 ALT 16 Units/L (12-78) 08/29/19 05:10 Alkaline Phosphatase 102 Units/L (46-116) 08/29/19 05:10 Total Protein 6.9 g/dL (6.4-8.2) 08/29/19 05:10 Albumin 2.7 g/dL (3.4-5.0) L 08/29/19 05:10 Globulin 4.2 g/dL (2.5-4.5) 08/29/19 05:10 Albumin/Globulin Ratio 0.6 Ratio (1.1-2.1) L 08/29/19 05:10 Tissue Pathology To follow 08/29/19 09:17 Review of Systems Constitutional: No Symptoms Reported Eyes: No Symptoms Reported ENT: No Symptoms Reported Respiratory: Cough, Shortness of Breath and Wheezing Cardiovascular: No Symptoms Reported Gastrointestinal: No Symptoms Reported Genitourinary: No Symptoms Reported Musculoskeletal: No Symptoms Reported Skin: No Symptoms Reported Neurological: No Symptoms Reported Physical Exam Vital Signs: Temperature 97.7 F Pulse Rate [Left] 72 Pulse Rate 57 Respiratory Rate 17 Blood Pressure [Left Arm] 122/60 Blood Pressure 121/77 O2 Sat by Pulse Oximetry 91 Oriented: Person and Place Eyes: Normal Ear: Normal Nose: Normal Respiratory: RLL Exp. Wheeze, KECIA Exp. Wheeze, RLL Rales and LLL Rales Cardiovascular: Normal : Normal Auscultation: Bowel Sounds: Normal Palpation: Normal Tenderness: Normal Skin: Normal Musculoskeletal: Normal Psychiatric: Normal Mood Description: Calm Speech Pattern: Clear Assessment/Plan (1) Pneumonia: Qualifiers: Aspiration pneumonia type: unspecified Laterality: left Lung location: lower lobe of lung Pneumonia type: aspiration pneumonia Qualified Code(s): J69.0 - Pneumonitis due to inhalation of food and vomit Status: Acute Plan: Likely aspiration pneumonia, will change abx to Zosyn+Azithromycin Sputum Cx pending (2) Hypoxia: Status: Acute Plan: On 2L nc, order Bronchodilators, Steroids (3) Dysphagia: Qualifiers: Dysphagia type: other dysphagia Qualified Code(s): R13.19 - Other dysphagia Status: Acute Plan: Consult Surgery, ST, and Dispatch Manager for evaluation (4) KENNY (acute kidney injury): Status: Acute Plan: IVF Cr:1.6>1.1 (5) Hypokalemia: Status: Acute Plan: Replace, continue to monitor. Review H&P Reviewed: Yes Patient was examined?: Yes
[2019-08-29] MEDS ORDERED: ZITHROMAX INJ 500 MG VIAL 500 MG in NS 250 ML IV 250 ML IV SCH (20:37)
[2019-08-29] MEDS ORDERED: LIPITOR TAB 10 MG PO SCH (21:00)
[2019-08-29] MEDS ORDERED: BENADRYL CAP/TAB 25 MG PO SCH (21:00)
[2019-08-30] MEDS: NS 1000 ML 1,000 ML IV SCH ×2 (04:22)
[2019-08-30] MEDS: DUONEB 0.5 MG/3 MG (3 mL) NEB SCH (05:10)
[2019-08-30] MEDS: ZOSYN VIAL 3.375 GRAMS 3.375 G in NS 100 ML IV + SPIKE MINIBAG* 100 ML IV SCH ×2 (06:07→14:14)
[2019-08-30 06:14] LABS: BASOPHILS % (AUTO) 0.1 % (0.2-1.0); EOSINOPHILS % (AUTO) 0.1 % (0.9-2.9); HEMATOCRIT 34.1 % (36.0-47.0); HEMOGLOBIN 11.8 g/dL (12.0-16.0); LYMPHOCYTES # (AUTO) 0.9 X10^3/uL (1.3-2.9); LYMPHOCYTES % (AUTO) 21.3 % (21.0-51.0); MEAN CORPUSCULAR HEMOGLOBIN 31.7 pg (27.0-34.0); MEAN CORPUSCULAR HGB CONC 34.7 g/dL (33.0-35.0); MEAN CORPUSCULAR VOLUME 91.2 fL (80.0-100.0); MEAN PLATELET VOLUME 7.7 fL (7.4-11.0); MONOCYTES # (AUTO) 0.2 x10^3/uL (0.3-0.8); MONOCYTES % (AUTO) 4.9 % (0.0-13.0); NEUTROPHILS # (AUTO) 3.2 x10^3/uL (2.2-4.8); NEUTROPHILS % (AUTO) 73.6 % (42.0-75.0); PLATELET COUNT 204 X10^3/uL (150.0-450.0); RED BLOOD COUNT 3.74 X10^6/uL (3.5-5.4); RED CELL DISTRIBUTION WIDTH 13.3 % (11.6-16.5); WHITE BLOOD COUNT 4.4 X10^3/uL (3.6-10.0)
[2019-08-30 06:30] LABS: BLOOD UREA NITROGEN 14 mg/dL (7-18); CALCIUM 8.1 mg/dL (8.5-10.1); CARBON DIOXIDE 25.6 mmol/L (21-32); CHLORIDE 104 mmol/L (98-107); COR NA(FOR HYPERGLY) 140 mmol/L (136-145); CREATININE 0.83 mg/dL (0.55-1.02); MAGNESIUM 1.9 mg/dL (1.7-2.9); SODIUM 139 mmol/L (136-145); eGFR NON BLACK RACES > 60 (>60)
[2019-08-30] MEDS: LOVENOX INJ 40 MG SYR SC SCH (08:59)
[2019-08-30] MEDS: SYNTHROID 25 mcg TAB PO SCH (09:00)
[2019-08-30] MEDS: ASPIRIN EC 81 MG PO SCH (09:00)
[2019-08-30] MEDS: ZITHROMAX INJ 500 MG VIAL 500 MG in NS 250 ML IV 250 ML IV SCH (09:00)
[2019-08-30] MEDS: PLAVIX PO SCH (09:00)
[2019-08-30] MEDS: NORVASC TAB 5 MG PO SCH (09:01)
[2019-08-30] MEDS: NAMENDA TAB 10 MG PO SCH (09:01)
[2019-08-30] MEDS: RisperDAL TAB 1 MG PO SCH (09:01)
[2019-08-30] MEDS: LOPRESSOR TAB 25 MG PO SCH (09:01)
[2019-08-30 12:28] VITALS: BP 132/60
== END 2019-08-30 15:50 | disposition home or self-care (01) ==
LOC: ER 17:29 → ICU 17:29 → MED/SURG 08-29 17:08
PROVIDERS: ADMIT Family Medicine; ATTEND Family Medicine
DX: R91.8 Other nonspecific abnormal finding of lung field; E87.6 Hypokalemia; N17.8 Other acute kidney failure; K44.9 Diaphragmatic hernia without obstruction or gangrene; E86.0 Dehydration; R13.11 Dysphagia, oral phase; N17.9 Acute kidney failure, unspecified; F02.80 Dementia in other diseases classified elsewhere, unspecified severity, without behavioral disturbance, psychotic disturbance, mood disturbance, and anxiety; R40.0 Somnolence; R06.02 Shortness of breath; G30.8 Other Alzheimer's disease; K29.70 Gastritis, unspecified, without bleeding; R09.02 Hypoxemia
CPT/HCPCS: 36415; 71010; 71045; 80048; 80053; 83735; 85025; 87040; 92610; 94640; 96360; 96361; 96365; 96372; 96374; 99100; 99284; A4216; A4217; A4222; G0378; J0456; J0696; J1650; J2543; J2704; J3480; J7030; J7050; J7512; J7620